=== PATIENT | male | born 1965 | race Caucasian/White ===

== ENCOUNTER → 2017-03-05 | Day surgery (SDC) | payer OTHER ==
[~2017-03-05] MED LIST: ABILIFY5 MG; CELEXA; CYMBALTA30 MG PO; FENTANYL CITRATE/PF 100MCG/2 ML INJ ONE; LIDOCAINE HCL 2% LOCAL INJ 5 ML SDV VIAL INJ ONE; LOSAR; LOSARTAN-HCTZ1 EACH PO; MIDAZOLAM HCL 2 MG/2 ML VIAL ONE; PANTOPRAZOLE SO40 MG PO; PROPOFOL IV EMULSION 10 MG/ML 50 ML VIAL ONE
--- NOTE | 2017-03-05 15:47 | Operative Report ---
DATE OF PROCEDURE: March 05, 2017 REFERRING PHYSICIAN: Dr. Mauro Maldonado. PROCEDURE PERFORMED: Colonoscopy and polypectomy. INDICATIONS FOR COLONOSCOPY: Colorectal cancer screening. MEDICATION: Patient was done under MAC. Please see anesthesiologist's note. PROCEDURE: With the patient in the left lateral decubitus position, the flexible fiberoptic Olympus colonoscope was inserted into the rectum with ease and advanced all the way to the cecum. The scope was then withdrawn slowly. Mucosa overlying the cecum, ascending colon, transverse, descending and sigmoid appeared to be within normal limits. One polyp was hot biopsied from the rectum. The scope was then retroflexed into the distal rectum and small internal hemorrhoids were noted along with a hypertrophied anal papilla. The scope was then straightened out. The rectosigmoid area as well as the distal rectal area were decompressed. The scope was subsequently withdrawn. Patient tolerated the procedure well. IMPRESSION: 1. Rectal polyp, hot biopsied. 2. Internal hemorrhoids, none actively bleeding. 3. Hypertrophied anal papilla. PLAN: Follow up histology. Initiate high-fiber low-fat diet. Initiate high-fiber supplement. Patient will need a followup colonoscopy in 3 years. Job#: [id number] EV cc:MAURO MALDONADO DO
== END | disposition home or self-care (01) ==
LOC: OR 12:27
PROVIDERS: ATTEND Internal Medicine Gastroenterology
DX: Z12.11 Encounter for screening for malignant neoplasm of colon (principal); K62.1 Rectal polyp; K62.89 Other specified diseases of anus and rectum; K64.8 Other hemorrhoids; G47.33 Obstructive sleep apnea (adult) (pediatric); I10 Essential (primary) hypertension; R00.1 Bradycardia, unspecified; F32.9 Major depressive disorder, single episode, unspecified; Z68.37 Body mass index [BMI] 37.0-37.9, adult
CPT/HCPCS: 45384; 93005; J2001; J2250

== ENCOUNTER → 2018-02-25 | Outpatient (CLI) | payer OTHER ==
[~2018-02-25] MED LIST changes: -FENTANYL CITRATE/PF 100MCG/2 ML INJ ONE; -LIDOCAINE HCL 2% LOCAL INJ 5 ML SDV VIAL INJ ONE; -MIDAZOLAM HCL 2 MG/2 ML VIAL ONE; -PROPOFOL IV EMULSION 10 MG/ML 50 ML VIAL ONE
--- NOTE | 2018-02-25 08:57 | Diagnostic Imaging Report ---
PROCEDURE:ABDOMINAL ULTRASOUND COMPARISON:None. INDICATIONS:ABDOMINAL PAIN FINDINGS: Liver: 17.1 cm in length in the right midclavicular line. Increased hepatic parenchymal echogenicity. In the left lobe there is a round anechoic lesion measuring 0.9 x 0.9 x 1.0 cm compatible with a simple cyst. Main portal vein: 1.2 cm in caliber. Patent with Hepatopedal flow. Gallbladder: No shadowing calculus, wall thickening, or pericholecystic fluid. Common Bile Duct: 0.3 cm in caliber. No echogenic filling defect. Sonographic Yoon's sign: Reported as negative. Right kidney: 12.1 cm in length. No solid or cystic mass, echogenic calculi, or hydronephrosis. Normal renal cortical echogenicity. Left kidney: 11.9 cm in length. No solid or cystic mass, echogenic calculi, or hydronephrosis. Normal renal cortical echogenicity. Spleen: 11.1 cm in length. Uniform parenchymal echotexture. Pancreas: The visualized portions of the pancreas are normal. Inferior vena cava: Patent. Aorta: Non-aneurysmal. Ascites: None. CONCLUSION: Hepatomegaly with hepatic steatosis. Simple cyst in the left hepatic lobe. No cholelithiasis or sonographic evidence of acute cholecystitis. Dictated by: Charanjit Santiago M.D. on 02/25/2018 at 9:08 Electronically approved by: Charanjit Santiago M.D. on 02/25/2018 at 9:08
== END ==
LOC: US 07:52
PROVIDERS: ATTEND Family Medicine
DX: R10.84 Generalized abdominal pain (principal)
CPT/HCPCS: 76700

== ENCOUNTER → 2018-03-14 | Outpatient (CLI) | payer OTHER ==
[~2018-03-14] MED LIST changes: +IOPAMIDOL 370 MG/ML 200 ML INFUS..BTL INJ ONE; +SODIUM CHLORIDE 0.9% 50ML 50 ML ONE
--- NOTE | 2018-03-14 17:21 | Diagnostic Imaging Report ---
EXAM: CT Abdomen and Pelvis WITH contrast INDICATION: Right sided abdominal Pain COMPARISON: Abdominal ultrasound 02/25/18. TECHNIQUE: Abdomen and pelvis were scanned utilizing a multidetector helical scanner from the lung base to the pubic symphysis after administration of IV contrast. Coronal and sagittal reformations were obtained. Routine protocol was performed. Scan was performed when during portal venous phase. IV CONTRAST: 100 cc of Isovue 370 ORAL CONTRAST: Water COMPLICATIONS: None RADIATION DOSE: Total DLP: 949.7 mGy*cm Estimated effective dose: (DLP x 0.015 x size factor) mSv CTDIvol has been reviewed. It is below the limits set by the Radiation Protocol Committee (RPC). FINDINGS: LINES and TUBES: None. LOWER THORAX: Minimal dependent atelectasis. HEPATOBILIARY: Diffuse fatty liver and hepatomegaly measuring up to 21 cm. Subcentimeter left hepatic lobe hypodensity is too small to characterize, but likely represents a cyst. No biliary ductal dilation. GALLBLADDER: No radio-opaque stones or sludge. No wall thickening. SPLEEN: No splenomegaly. PANCREAS: No focal masses or ductal dilatation. ADRENALS: No adrenal nodules KIDNEYS/URETERS: Kidneys enhance symmetrically. No evidence of hydronephrosis, solid mass, or stone. GI TRACT: No evidence of wall thickening or distension. Appendix is normal. PELVIC ORGANS/BLADDER: Unremarkable. LYMPH NODES: No lymphadenopathy. Mildly prominent mesenteric lymph nodes measuring up to 7 mm short axis. VESSELS: Unremarkable. PERITONEUM / RETROPERITONEUM: No free air or fluid. Mild nonspecific mesenteric stranding involving the left upper abdomen BONES AND SOFT TISSUES: Unremarkable. CONCLUSION: Diffuse mild fatty liver and hepatomegaly. Non-specific mild mesenteric stranding in the left upper abdomen with mildly prominent mesenteric lymph nodes, not meeting criteria for pathologic enlargement. Findings could represent sequela of prior inflammatory process or mesenteric panniculitis. Malignant process is considered less likely. Signed by: Dr. Yanet Evans MD on 03/14/2018 5:18 PM
== END ==
LOC: CT 15:02
PROVIDERS: ATTEND Family Medicine
DX: R10.84 Generalized abdominal pain (principal)
CPT/HCPCS: 74177; Q9967

== ENCOUNTER → 2018-04-02 | Day surgery (SDC) | payer OTHER ==
[~2018-04-02] MED LIST changes: +FENTANYL CITRATE/PF 100MCG/2 ML INJ ONE; +HYOSCYAMINE SULFATE 0.5 MG/ML INJ ONE; -IOPAMIDOL 370 MG/ML 200 ML INFUS..BTL INJ ONE; +MIDAZOLAM HCL 5MG/ML 2ML VIAL ONE; +PROPOFOL IV EMULSION 10 MG/ML 50 ML VIAL ONE; -SODIUM CHLORIDE 0.9% 50ML 50 ML ONE
--- OUTSIDE RECORDS SUMMARY | 2018-04-02 09:14 | XMS REPORT ---
Author Author [facility] Address Unknown Phone Unavailable Care Team Providers Care Cancer Spec Name Role Phone DIPIKA MALDONADO Unavailable Unavailable ROEL MALDONADO Unavailable Unavailable Problems This patient has no known problems. Allergies, Adverse Reactions, Alerts This patient has no known allergies or adverse reactions. Medications This patient has no known medications. Results Test Description Test Time Test Comments Text Results Atomic Results Result Comments CT ABDOMEN/PELVIS W 2018-03-14 17:05:00 [facility] [address] [place] [address] Patient Name: WOLFGANG BENITES MR #: [id number] : 1965 Age/Sex: 52/M Req #: [id number] Adm Physician: Ordered by: DIPIKA MALDONADO DO Report #: [id number] Location: CT Room/Bed: Procedure: [id number] CT/CT ABDOMEN/PELVIS W Exam Date: 03/14/18 Exam Time: 1615 REPORT STATUS: Signed EXAM: CT Abdomen and Pelvis WITH contrast INDIC ATION: Right sided abdominal Pain COMPARISON: Abdominal ultrasound 02/25/18. TECHNIQUE: Abdomen and pelvis were scanned utilizing a multidetector helical scanner from the lung base to the pubic symphysis after administration of IV contrast. Coronal and sagittal reformations were obtained. Routine protocol was performed. Scan was performed when during portal venous phase. IV CONTRAST: 100 cc of Isovue 370 ORAL CONTRAST: Water COMPLICATIONS: None RADIATION DOSE: Total DLP: 949.7 mGy*cm Estimated effective dose: (DLP x 0.015 x size factor) mSv CTDIvol has been reviewed. It is below the limits set by the Radiation Protocol Committee (RPC). FINDINGS: LINES and TUBES: None. LOWER THORAX: Minimal dependent atelectasis. HEPATOBILIARY: Diffuse fatty liver and hepatomegaly measuring up to 21 cm. Subcentimeter left hepatic lobe hypodensity is too small to characterize, but likely represents a cyst. No biliary ductal dilation. GALLBLADDER: No radio-opaque stones or sludge. No wall thickening. SPLEEN: No splenomegaly. PANCREAS: No focal masses or ductal dilatation. ADRENALS: No adrenal nodules KIDNEYS/URETERS: Kidneys enhance symmetrically. No evidence of hydronephrosis, solid mass, or stone. GI TRACT: No evidence of wall thickening or distension. Appendix is normal. PELVIC ORGANS/BLADDER: Unremarkable. LYMPH NODES: No lymphadenopathy. Mildly prominent mesenteric lymph nodes measuring up to 7 mm short axis. VESSELS: Unremarkable. PERITONEUM / RETROPERITONEUM: No free air or fluid. Mild nonspecific mesenteric stranding involving the left upper abdomen BONES AND SOFT TISSUES: Unremarkable. CONCLUSION: Diffuse mild fatty liver and hepatomegaly. Non-specific mild mesenteric stranding in the left upper abdomen with mildly prominent mesenteric lymph nodes, not meeting criteria for pathologic enlargement. Findings could represent sequela of prior inflammatory process or mesenteric panniculitis. Malignant process is considered less likely. Signed by: Dr. Arias Martinez MD on 03/14/2018 5:18 PM Dictated By: ARIAS MARTINEZ MD 17 Transcribed By: BEN on 03/14/181717 COPY TO: DIPIKA MALDONADO DO ABDOMEN COMPLETE 2018-02-25 09:08:00 [place] [address] Patient Name: WOLFGANG BENITES MR #: [id number] : 1965 Age/Sex: 52/M Req #: [id number] Adm Physician: Ordered by: MALDONADO ANDREW DO Report #: [id number] Location: US Room/Bed: Procedure: [id number] US/US ABDOMEN COMPLETE Exam Date: Exam Time: REPORT STATUS: Signed PROCEDURE: ABDOMINAL ULTRASOUND COMPARISON: None. INDICATIONS: ABDOMINAL PAIN FINDINGS: Liver: 17.1 cm in length in the right midclavicular line. Increased hepatic parenchymal echogenicity. In the left lobe there is a round anechoic lesion measuring 0.9 x 0.9 x 1.0 cm compatible with a simple cyst. Main portal vein: 1.2 cm in caliber. Patent with Hepatopedal flow. Gallbladder: No shadowing calculus, wall thickening, or pericholecystic fluid. Common Bile Duct: 0.3 cm in caliber. No echogenic filling defect. Sonographic Yoon's sign: Reported as negative. Right kidney: 12.1 cm in length. No solid or cystic mass, echogenic calculi, or hydronephrosis. Normal renal cortical echogenicity. Left kidney: 11.9 cm in length. No solid or cystic mass, echogenic calculi, or hydronephrosis. Normal renal cortical echogenicity. Spleen: 11.1 cm in length. Uniform parenchymal echotexture. Pancreas: The visualized portions of the pancreas are normal. Inferior vena cava: Patent. Aorta: Non-aneurysmal. Ascites: None. CONCLUSION: Hepatomegaly with hepatic steatosis. Simple cyst in the left hepatic lobe. No cholelithiasis or sonographic evidence of acute cholecystitis. Dictated by: Junaid Austin M.D. on 02/25/2018 at 9:08 Electronically approved by: Junaid Austin M.D. on 02/25/2018 at 9:08 Dictated By: JUNAID AUSTIN MD [employer] Signed By: JUNAID AUSTIN MD on 02/25/18907 Transcribed By: LISA on 02/25/18907 COPY TO: ROEL MALDONADO DO
[2018-04-02 11:25] VITALS: BP 110/79
--- NOTE | 2018-04-02 15:33 | Operative Report ---
DATE OF PROCEDURE: April 02, 2018 REFERRING PHYSICIAN: Dr. Rishi Maldonado PROCEDURES PERFORMED 1. Esophagogastroduodenoscopy with biopsies. 2. Colonoscopy with biopsies. INDICATIONS FOR EGD: Upper abdominal pain. INDICATIONS FOR COLONOSCOPY: Mesenteric lymphadenopathy and weight loss. MEDICATION: Patient was done under MAC. Please see anesthesiologist's note. PROCEDURE: With the in the left lateral decubitus position, the flexible fiberoptic Olympus gastroscope was introduced into the esophagus under direct visualization without any difficulty. There was some patchy erythema noted in the distal esophagus. The scope was then advanced with ease into the stomach. Mucosa overlying the antrum and the body revealed some patchy erythema and low-grade to moderate edema, and biopsies were obtained and sent to stain for H. pylori. A prominent friable fold was noted in the midbody along the anterior wall of the stomach and that was biopsied. Pylorus appeared to be of normal contour and shape. It was intubated with ease. The scope was advanced all the way to the 2nd portion of the duodenum. Some minimally scalloped folds were noted in the proximal 2nd portion and biopsies were obtained to rule out sprue. Mucosa overlying the duodenal bulb appeared to be within normal limits. The scope was then withdrawn back into the stomach and retroflexed. Mucosa overlying the fundus and the cardia appeared to be within normal limits. The scope was then straightened out. It was subsequently withdrawn. Patient tolerated the procedure well. IMPRESSION 1. Distal esophagitis, mild. 2. Gastritis, biopsied. Biopsies sent to stain for Helicobacter pylori. 3. Prominent friable fold, midgastric body anterior wall, biopsied. 4. Rule out sprue. PLAN: Follow up histology. Initiate Protonix 40 mg 1 p.o. q.a.m. a.c. Patient was then turned around. After adequate lubrication of the anal canal, a flexible fiberoptic Olympus colonoscope was inserted into the rectum with ease and advanced all the way to the cecum. Mucosa overlying the cecum appeared to be within normal limits. The ileocecal valve was intubated and the scope was advanced into the terminal ileum. Biopsies were obtained. The scope was then withdrawn back into the colon. It was then withdrawn slowly. Mucosa overlying the ascending, transverse, descending, sigmoid, and rectum grossly were unremarkable. The scope was then retroflexed into the distal rectum and small internal hemorrhoids and some hypertrophic anal papillae were noted. The scope was then straightened out. It was subsequently withdrawn. Patient tolerated the procedure well. IMPRESSION 1. Terminal ileum, biopsied. 2. Internal hemorrhoids, none actively bleeding. 3. Hypertrophic anal papillae. PLAN: Follow up histology. Check CRP and sed rate. Patient might benefit from a followup colonoscopy in 5 to 10 years. Job#: [id number] RI cc:DIPIKA MALDONADO DO
== END | disposition home or self-care (01) ==
LOC: ENDO 09:11
PROVIDERS: ATTEND Internal Medicine Gastroenterology
DX: K29.70 Gastritis, unspecified, without bleeding (principal); K20.9 Esophagitis, unspecified; K31.89 Other diseases of stomach and duodenum; K64.8 Other hemorrhoids; K62.89 Other specified diseases of anus and rectum; I88.0 Nonspecific mesenteric lymphadenitis; R63.4 Abnormal weight loss; G47.33 Obstructive sleep apnea (adult) (pediatric); I10 Essential (primary) hypertension; R73.03 Prediabetes; F32.9 Major depressive disorder, single episode, unspecified; Z01.810 Encounter for preprocedural cardiovascular examination; Z68.37 Body mass index [BMI] 37.0-37.9, adult
CPT/HCPCS: 36415; 43239; 45380; 85651; 86140; 93005; J1980; J2250; 45378

== ENCOUNTER → 2019-03-04 | Day surgery (SDC) | payer OTHER ==
[~2019-03-04] MED LIST changes: +ACETAMINOPHEN 1000 MG/100 ML 100 ML IV ONE; +ACETAMINOPHEN 1000 MG/100 ML IV ONE; +BUPIVACAINE 0.5%/EPI 30 ML SDV INJ ONE; +CEFAZOLIN SOD 1 GM/NS 50ML 100 ML IV ONE; +DEXAMETHASONE SOD PHOS INJ 4 MG/ML VIAL ONE; -HYOSCYAMINE SULFATE 0.5 MG/ML INJ ONE; +LIDOCAINE HCL 2% LOCAL INJ 5 ML SDV VIAL INJ ONE; +MIDAZOLAM HCL 2 MG/2 ML VIAL ONE; -MIDAZOLAM HCL 5MG/ML 2ML VIAL ONE; +ONDANSETRON HCL INJ 2MG/ML 2ML 2 MG/ML VIAL ONE; +ONE DAILY FOR1 EAC2 PO; +PROPOFOL IV EMULSION 10 MG/ML 20 ML VIAL ONE; -PROPOFOL IV EMULSION 10 MG/ML 50 ML VIAL ONE; +SEVOFLURANE INHAL SOLN 250 ML PEN BTL ONE
[2019-03-04 11:40] VITALS: BP 135/86
--- NOTE | 2019-03-05 15:51 | Operative Report ---
DATE OF PROCEDURE: 03/04/2019 SURGEON: Rafal London MD PREOPERATIVE DIAGNOSIS: Left knee pain, possible left knee occult medial meniscus tear, degenerative joint disease of the knee. POSTOPERATIVE DIAGNOSIS: Left knee medial shelf plica, degenerative joint disease of the left knee. OPERATIONS AND PROCEDURES PERFORMED: The patient underwent a left knee examination under anesthesia, left knee arthroscopy, left knee resection of a medial shelf plica, left knee chondroplasty of the patella, medial femoral condyle, the medial tibial plateau, the lateral tibial plateau, and the lateral femoral condyle. MANAGER LOGISTIC: VI Evangelista. ANESTHESIA: General endotracheal intubation anesthesia. IV FLUIDS: Per the anesthesia record. BRIEF DESCRIPTION OF THE PATIENT'S OPERATIVE PROCEDURE: Mr. Carmona was taken to the operating room and placed in the supine position on the operating table. Following induction of general anesthesia as well as the endotracheal intubation, the patient's left lower extremity was examined under anesthesia. He was found to have no significant effusion within the knee joint. The patient's knee was ligamentously stable. The patient's lower extremity was prepped and draped in standard surgical fashion. A two-port technique was used to provide this patient arthroscopic evaluation of the knee joint. Examination of suprapatellar pouch and medial and lateral gutters found no evidence of loose bodies. There was, however, a medial shelf plica interdigitating between the patella and femoral condyle. 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 The scope was advanced to the medial compartment. Examination of the medial compartment demonstrated chondromalacia of the articulating surfaces. The medial meniscus was thoroughly examined and there was no evidence of a meniscus tear. A chondroplasty of the medial femoral condyle and medial tibial plateau performed at this time. The scope was advanced into the intercondylar notch and the anterior cruciate ligament was identified and found to be intact. The scope was then advanced into the lateral compartment and chondromalacia of the lateral tibial plateau, the lateral femoral condyle was encountered. A chondroplasty of each of the surfaces was performed at this time. The scope was then placed in suprapatellar pouch and a chondroplasty of the patella was performed. The medial shelf plica was resected. The knee was deflated with sterile normal saline. Each of the portal sites were closed using 4-0 nylon suture. The portal sites as well as the knee itself were injected with 0.5% Marcaine with epinephrine. Sterile dressings were applied. The patient was awakened and taken to postanesthesia care unit in stable condition. MD TYLER Johns/FIDENCIO /[id number]
== END | disposition home or self-care (01) ==
LOC: OR 05:39
PROVIDERS: ATTEND Specialist
DX: S62.012A Displaced fracture of distal pole of navicular [scaphoid] bone of left wrist, initial encounter for closed fracture (principal); S83.222A Peripheral tear of medial meniscus, current injury, left knee, initial encounter; M17.12 Unilateral primary osteoarthritis, left knee; G47.33 Obstructive sleep apnea (adult) (pediatric); I10 Essential (primary) hypertension; F32.9 Major depressive disorder, single episode, unspecified; Z82.49 Family history of ischemic heart disease and other diseases of the circulatory system; Z80.9 Family history of malignant neoplasm, unspecified; M67.52 Plica syndrome, left knee
CPT/HCPCS: 29877; 29999; 93005; J0131; J0690; J1100; J2001; J2250; J2405; J2704; J3010